=== PATIENT | female | born 1970 | race Caucasian/White ===

== ENCOUNTER 2016-08-16 18:51 | Emergency (ER) | payer MEDICAID ==
[~2016-08-16] VITALS: Ht 167.6 cm; Wt 155.7 kg
[2016-08-16 18:53] VITALS: BP 137/77
== END 2016-08-16 19:45 | disposition home or self-care (01) ==
LOC: ED 19:37
DX: J30.2 Other seasonal allergic rhinitis (principal); B34.9 Viral infection, unspecified; H92.03 Otalgia, bilateral; K21.9 Gastro-esophageal reflux disease without esophagitis; E66.9 Obesity, unspecified; E11.9 Type 2 diabetes mellitus without complications; Z88.2 Allergy status to sulfonamides; Z79.84 Long term (current) use of oral hypoglycemic drugs
CPT/HCPCS: 99283

== ENCOUNTER → 2016-10-25 | Outpatient (CLI) | payer MEDICAID | END | disposition home or self-care (01) | LOC: RAD 13:42 | PROVIDERS: ATTEND Nurse Practitioner | DX: M51.15 Intervertebral disc disorders with radiculopathy, thoracolumbar region (principal); M47.892 Other spondylosis, cervical region | CPT/HCPCS: 72141 ==

== ENCOUNTER → 2016-10-26 | Outpatient (CLI) | payer MEDICAID | END | disposition home or self-care (01) | LOC: CFH 10:44 | PROVIDERS: ATTEND Family Medicine | DX: Z12.31 Encounter for screening mammogram for malignant neoplasm of breast (principal); E04.1 Nontoxic single thyroid nodule; M50.322 Other cervical disc degeneration at C5-C6 level; M48.02 Spinal stenosis, cervical region; G89.29 Other chronic pain; M25.862 Other specified joint disorders, left knee | CPT/HCPCS: 72050; 73564; 73565; 76536; G0202 ==

== ENCOUNTER 2016-12-13 08:45 | Day surgery (SDC) | payer MEDICAID ==
[~2016-12-13] VITALS: Ht 167.6 cm; Wt 150.7 kg
[~2016-12-13 08:45] MED LIST: DULO30CA2 PO; GABA300C10 PO; IBUP-1222 PO; INSU300I SC; LEVO88TA4 PO; LORA-446 PO; LOSA50TA6 PO; METF500T4 PO; OMEP-110 PO
[2016-12-13] MEDS ORDERED: LACTATED RINGERS 1,000 ML IV SCH (09:15)
[2016-12-13 09:21] VITALS: BP 112/76
[2016-12-13] MEDS ORDERED: HYDROmorphone 1 MG/ML, 1ML ONE (09:55)
[2016-12-13] MEDS ORDERED: MIDAZOLAM 1 MG/ML, 2ML ONE (09:55)
[2016-12-13] MEDS ORDERED: FENTANYL PF 100 MCG/2ML ONE ×2 (09:55→12:05)
[2016-12-13 10:16] LABS: HCG UR OBC PASS
[2016-12-13] MEDS ORDERED: PROPOFOL 10 MG/ML, 20ML ONE (10:47)
[2016-12-13] MEDS ORDERED: ONDANSETRON 2MG/ML, 2ML ONE (10:47)
[2016-12-13] MEDS ORDERED: ROCURONIUM 10 MG/ML ONE (10:47)
[2016-12-13] MEDS ORDERED: SUCCINYLCHOLINE 20 MG/ML, 10ML ONE (10:47)
[2016-12-13] MEDS ORDERED: HYDROmorphone 1 MG/ML, 1ML IV PRN (11:30)
[2016-12-13] MEDS ORDERED: OXYcodone 5 MG/5 ML ORAL.SOL UDC PO PRN (11:30)
[2016-12-13] MEDS ORDERED: HYDROcodone/APAP 7.5-325MG/15ML UDC PO PRN (11:30)
[2016-12-13] MEDS ORDERED: ACETAMINOPHEN 325 MG TABLET PO PRN (11:30)
[2016-12-13] MEDS ORDERED: ONDANSETRON 2MG/ML, 2ML IVPush PRN (11:30)
[2016-12-13] MEDS ORDERED: ACETAMINOPHEN 650 MG/20.3 ML UDC ONE (11:44)
[2016-12-13] MEDS ORDERED: OXYcodone 5 MG/5 ML ORAL.SOL UDC ONE ×2 (11:45→12:52)
[2016-12-13] MEDS ORDERED: ACETAMINOPHEN 325 MG TABLET ONE (11:45)
[2016-12-13] MEDS: FENTANYL PF 100 MCG/2ML IV PRN ×3 (12:06→12:20)
[2016-12-13] MEDS: OXYcodone 5 MG/5 ML ORAL.SOL UDC PO PRN ×2 (12:51→12:52)
[2016-12-13] MEDS ORDERED: OXYcodone IR 5MG TABLET ONE (12:51)
== END 2016-12-13 14:15 | disposition home or self-care (01) ==
LOC: OUT 08:45
PROVIDERS: ATTEND Surgery
DX: E07.89 Other specified disorders of thyroid (principal); M48.02 Spinal stenosis, cervical region; M50.10 Cervical disc disorder with radiculopathy, unspecified cervical region; G52.9 Cranial nerve disorder, unspecified; E11.9 Type 2 diabetes mellitus without complications
CPT/HCPCS: 60220; 81025; 82962; 88307; 95867; 95940; C1760; J0330; J1170; J2250; J2405; J2704; J3010; J7120

== ENCOUNTER 2020-05-17 16:29 | Emergency (ER) | payer SELFPAY ==
[~2020-05-17] VITALS: Ht 167.6 cm; Wt 157.0 kg
[~2020-05-17 16:29] MED LIST changes: +LOSA50TA14 PO; -LOSA50TA6 PO; +METF500T17 PO; -METF500T4 PO
[2020-05-17 19:22] VITALS: BP 144/89
== END 2020-05-17 19:23 | disposition home or self-care (01) ==
LOC: ED 19:15
DX: R51.9 Headache, unspecified (principal); Z20.822 Contact with and (suspected) exposure to COVID-19; E11.9 Type 2 diabetes mellitus without complications; K21.9 Gastro-esophageal reflux disease without esophagitis; Z87.891 Personal history of nicotine dependence; Z90.89 Acquired absence of other organs; Z89.619 Acquired absence of unspecified leg above knee
CPT/HCPCS: 87635; 99283